=== PATIENT | female | born 1990 | race Caucasian/White ===

== ENCOUNTER 2022-10-23 13:13 | Outpatient (CLI) | payer OTHER, SELFPAY ==
[2022-10-23 23:12] LABS: Strep A DNA Probe* NOT DETECTED (Not Detectd)
[2022-10-23 23:16] LABS: SARS PCR* Negative SARS-CoV-2 (Negative)
== END 2022-10-23 13:14 | disposition home or self-care (01) ==
PROVIDERS: Visit Provider Nurse Practitioner Family
DX: J06.9 Acute upper respiratory infection, unspecified (principal); J02.9 Acute pharyngitis, unspecified
CPT/HCPCS: 87635; 87651